=== PATIENT | male | born 1965 | race Caucasian/White ===

== ENCOUNTER 2016-12-17 21:24 | Emergency (ER) | payer SELFPAY ==
[2016-12-17 21:26] VITALS: BP 125/73; PULSE 75; RESP 16; TEMP 98; O2SAT 97
== END 2016-12-17 22:52 | disposition left against medical advice (07) ==
LOC: NED 21:24
DX: S01.511A Laceration without foreign body of lip, initial encounter (principal); X58.XXXA Exposure to other specified factors, initial encounter
CPT/HCPCS: 99281

== ENCOUNTER 2016-12-17 23:14 | Emergency (ER) | payer BC ==
[~2016-12-17] VITALS: Ht 175.3 cm; Wt 84.6 kg
[2016-12-17 23:20] VITALS: BP 122/72; PULSE 71; RESP 12; TEMP 98; O2SAT 97
[2016-12-17 23:42] VITALS: BP 175/101; PULSE 78; RESP 12; TEMP 97.9; O2SAT 99
--- NOTE | 2016-12-18 00:24 | PD ---
HPI Chief Complaint: Laceration/Skin Injury Time Seen by Provider: 23:34 Travel History International Travel<30 days: No Contact w/Intl Traveler<30days: No Traveled to known affect area: No History of Present Illness HPI The patient is a 51-year-old male that had some elastic tight cover material hit his face when he was trying to cover his boat today at 5:30 PM. There was no loss of consciousness but the patient does feel a slight chipped tooth on the upper incisor. He sustained a laceration of his lower lip. His last tetanus shot was over 5-10 years-he is unsure when his last shot was. PFSH Past Medical History Medical History: Denies Significant Hx Tetanus Vaccination: > 5 Years Influenza Vaccination: No Past Surgical History Abdominal Surgery: Yes (LEFT INGUINAL HERNIA) Social History Alcohol Use: Yes (SOCIALLY) Tobacco Use: No (QUIT: 2013) Substance Use: No Allergies-Medications (Allergen,Severity, Reaction): Coded Allergies: No Known Allergies (Verified Allergy, Unknown, 12/17/16) Reported Meds & Prescriptions Reported Meds & Active Scripts Active No Active Prescriptions or Reported Medications Review of Systems Except as stated in HPI: all other systems reviewed are Neg Physical Exam Narrative GENERAL: Well-nourished, well-developed patient. SKIN: Focused skin assessment warm/dry. There is a 2-1/2 cm flap laceration involving the lower lip. All of the laceration is through the mucosa of the lip. The flap is dusky and the wound edges are dried out. HEAD: Normocephalic. EYES: No scleral icterus. No injection or drainage. NECK: Supple, trachea midline. No JVD or lymphadenopathy. CARDIOVASCULAR: Regular rate and rhythm without murmurs, gallops, or rubs. RESPIRATORY: Breath sounds equal bilaterally. No accessory muscle use. GASTROINTESTINAL: Abdomen soft, non-tender, nondistended. MUSCULOSKELETAL: No cyanosis, or edema. BACK: Nontender without obvious deformity. No CVA tenderness. DENTAL: No loose teeth but the upper incisor on the left shows a tiny chip. No other acute dental problems are present. Data Data Last Documented VS Vital Signs Date Time Temp Pulse Resp B/P (MAP) Pulse Ox O2 Delivery O2 Flow Rate FiO2 12/17/16 23:20 98.0 71 12 122/72 (89) 97 MDM Medical Decision Making Medical Screen Exam Complete: Yes Emergency Medical Condition: Yes Medical Record Reviewed: Yes Differential Diagnosis Laceration lip, chipped tooth, loss of vascularity of flap, loose teeth Narrative Course The flap has not completely lost its vascularity, it is simply dusky. The laceration will be sewn up to give the best chance of the flap surviving. He will also get a tetanus shot. The tooth chip is minimal and a dentist can file this down if necessary. Procedures Procedure Narrative The skin was prepped with Betadine. Plain lidocaine was used to infiltrate the laceration. Under sterile technique the laceration was copiously irrigated with saline. 4-0 Vicryl was used, 6 stitches to tie the flap down. The patient tolerated the procedure well. Diagnosis Primary Impression: Laceration of lip Additional Impression: Chipped tooth Additional Instructions: As we discussed, have a dentist filed down the tooth to smooth and off with this bothers you. The sutures are dissolving sutures but if you want them out after 12-14 days they can be pulled out at that time. If you have any problems , return to emergency department immediately for reevaluation. The wound is dusky which leaves at increased chance of infection and wound will heal slower. Med/Other Pt SpecificInfo: No Change to Meds Scripts No Active Prescriptions or Reported Meds Disposition: 01 DISCHARGE HOME Condition: Stable Reyes Rodriguez MD Dec 18, 2016 00:23
== END 2016-12-18 00:34 | disposition home or self-care (01) ==
LOC: PHED 23:14
DX: S01.511A Laceration without foreign body of lip, initial encounter (principal); K08.89 Other specified disorders of teeth and supporting structures; W22.8XXA Striking against or struck by other objects, initial encounter
CPT/HCPCS: 12011